=== PATIENT | female | born 1980 | race African-American/Black ===

== ENCOUNTER 2020-09-13 08:19 | Emergency (ER) | payer MEDICAID, SELFPAY ==
[2020-09-13 08:24] VITALS: BP 142/102; PULSE 85; TEMP 36.7; O2SAT 98
--- NOTE | 2020-09-13 08:25 | W.ED.GENAD ---
Discharge Plan Disposition Patient Disposition: HOME Condition: Stable Discharge Details Clinical Impression: Rash, Bilateral plantar wart Primary Care Provider: Vangie Genao ED Provider: Sia Villalpando Home Meds and New Rx's Prescriptions: No Action No Known Home Meds RF: 0 Discharge Instructions Instructions: Plantar Wart (ED), Acute Rash (ED) Additional Instructions: You appear to have possible plantar warts on the bottom of your feet. You can try [id number] medications such as Compound W to treat this as needed. Plantar warts can be resistant to treatment and may require multiple applications. You should follow-up with podiatry for further evaluation. The rash on your right hand appears nonconcerning. It does not appear consistent with an infection or allergic reaction. If you develop any itching or swelling in the area, you can try [id number]-[id number] topical hydrocortisone. If you develop any redness, swelling, pain or red streaking, you can apply topical antibiotic ointment such as Neosporin. Follow up with your primary care doctor in 1 week as needed. Return to the emergency department with any worsening or new concerning symptoms. Referrals: Nehemias Pereyra DPM [[facility] STAFF PHYSICIAN] - Discharge Data Discharge Physician: Sia Villalpando Medical Decision Making 39-year-old female with no significant past medical history presents with concern for plantar wart for the past several years and a new lesion to her right hand this morning. Mom appears quite anxious. She has multiple white indurated flat lesions on the plantar surface of both feet which do appear consistent with potential plantar warts. There is no evidence of infection. Do not see an indication for labs or imaging. The lesion on her right hand appears minimal and does not appear consistent with an allergic reaction or infection. Discussed that this could be sebum or keratin plug. I do not see an indication for treatment at this time and she is advised to continue to follow and if she develops any itching or pain to treat topically as indicated. Patient states her main concern was that the lesion on her right hand is a wart. I discussed that this does not appear consistent with a wart at this time and she is advised to wash her hands as she has been before applying lotion to her children skin. She was given podiatry follow-up information and fqag-zaa-fqsvrvy recommendations for her plantar warts. Usual and customary return precautions given prior to discharge. Medical Records Medical records reviewed: Yes I reviewed the patient's medical records. HPI General Mode of arrival: ambulatory. Date/Time Provider Initiated Documentation: 09/13/20 08:25. Limitations to Documentation: no limitations. Information obtained by: patient. HPI Narrative: Patient is a 39-year-old female with no significant past medical history presents to the ED with concern for lesions on the bottom of her feet and a lesions on her right hand. She states she thinks she has had warts on the bottom of both feet for the past several years. 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 She states of lesions on the bottom of her feet have slightly improved since she stopped teaching dancing but states they are still present. She states she does have pain with weightbearing. She denies any recent worsening of these lesions. She states she has been mostly with her 6 children twice daily recently and noticed this morning a lesion on her right hand. She is concerned that this is potentially a wart that has traveled from her foot and she is concerned about transmitting it to her children. She denies any itching or pain of this right hand lesion. She states she otherwise has been feeling well. She denies any other new soaps, lotions, detergents, medications or any other concerns. Related Data Home Medications Medication Instructions Recorded Confirmed Unknown [No Known Home Meds] 09/13/20 09/13/20 Allergies Allergy/AdvReac Type Severity Reaction Status Date / Time No Known Allergies Allergy Unverified 09/13/20 08:28 Review of Systems All systems reviewed & are unremarkable except as noted in HPI and below Constitutional Constitutional: Reports as per HPI, Denies chills and Denies fever(s) Eyes Eyes: Denies blurry vision ENT Ears, Nose, Mouth, and Throat: Denies dizziness, Denies sore throat and Denies throat swelling Cardiovascular Cardiovascular: Denies chest pain and Denies dyspnea Respiratory Respiratory: Denies cough and Denies dyspnea Gastrointestinal Gastrointestinal: Denies abdominal pain, Denies diarrhea and Denies vomiting Genitourinary Genitourinary: Denies hematuria and Denies dysuria Musculoskeletal Musculoskeletal: Denies back pain and Denies numbness Integumentary/Breasts Skin/Breast: Reports lesions and Reports rash Neurologic Neurologic: Denies dizziness, Denies localized weakness and Denies numbness Allergic/Immunologic Allergic/Immunologic: Denies throat swelling [facility] Medical History (Updated 09/13/20 @ 09:07 by Sia Villalpando DO) No significant past medical history Surgical History (Updated 09/13/20 @ 09:07 by Sia Villalpando DO) H/O section Social History Smoking/Tobacco Use Status: Never Smoking risk assessment performed?: Yes Alcohol Intake: never Drug use: Never Substance use type: does not use Do you feel safe at home: Yes Do you feel safe in your relationship?: Yes Exam Const General: cooperative, healthy appearing and no acute distress HENMT Head: normal to inspection Mouth: oral mucosae normal Eyes General: appearance normal, both eyes and all related structures Neck Neck: normal visual inspection Resp Effort & Inspection: normal respiratory effort and able to speak in complete sentences Cardio Rate: regular rate Neuro General: patient alert, patient awake and patient oriented x3 Motor: muscle tone normal throughout Extrem General: normal to inspection and full ROM Hand/finger images: 1. 1mm raised skin colored nontender papule without surrounding erythema, ecchymosis, drainage, red streaking, crepitus. Ankle/foot/toe images: 1. 2 x 2 millimeter white indurated flat lesion noted on plantar surface of foot. This is the largest of multiple other similar lesions located on the plantar surface of both feet. There is no evidence of erythema, edema, ecchymosis, crepitus or significant tenderness noted. Psych Appearance: grossly normal Affect: normal affect
== END 2020-09-13 09:12 | disposition home or self-care (01) ==
PROVIDERS: Emergency Provider Physician Assistant; PCP Nurse Practitioner Adult Health
DX: R21 Rash and other nonspecific skin eruption (principal); B07.0 Plantar wart
CPT/HCPCS: 99282; 99283